=== PATIENT | male | born 1965 | race Caucasian/White ===

== ENCOUNTER 2020-02-09 14:48 | Inpatient (IN) | payer OTHER, MEDICAID ==
[~2020-02-09] VITALS: Ht 177.8 cm; Wt 97.1 kg
[2020-02-09 14:58] VITALS: BP_SYST 115
[2020-02-09] MEDS ORDERED: MORPHINE 4 MG/ML INJ. SYRINGE IVP ONE ×2 (15:00→17:15)
[2020-02-09 15:21] LABS: BASOPHILS # (AUTO) 0.1 K/uL (0.0-0.2); BASOPHILS % (AUTO) 0.8 % (0.0-2.0); EOSINOPHILS # (AUTO) 0.2 K/uL (0.0-0.4); EOSINOPHILS % (AUTO) 2.5 % (0.0-4.0); HEMATOCRIT 45.7 % (36-54); HEMOGLOBIN 15.4 g/dL (14.0-18.0); LYMPHOCYTES # (AUTO) 1.7 K/uL (1.0-5.5); LYMPHOCYTES % (AUTO) 24.9 % (20.5-51.5); MEAN CORPUSCULAR HEMOGLOBIN 34 pg (27-31); MEAN CORPUSCULAR HGB CONC 34 % (32-36); MEAN CORPUSCULAR VOLUME 100 fL (79.0-98.0); MONOCYTES # (AUTO) 0.9 K/uL (0.0-1.0); MONOCYTES % (AUTO) 12.3 % (1.7-9.3); NEUTROPHILS # (AUTO) 4.2 K/uL (1.8-7.7); NEUTROPHILS % (AUTO) 59.5 % (40.0-70.0); PLATELET COUNT (AUTO) 161 K/uL (130-430); RED BLOOD CELL COUNT(AUTO) 4.58 MIL/uL (4.2-6.2); RED CELL DISTRIBUTION WIDTH 12.7 % (9.0-15.0)
[2020-02-09] MEDS ORDERED: LORazepam 2 MG/ML VIAL IVP ONE (16:00)
[2020-02-09 16:39] LABS: ANION GAP 9 (5-15); CALCIUM 8.6 mg/dL (8.4-11.0); CHLORIDE 102 mmol/L (98-107); GLUCOSE 112 mg/dL (70-99); POTASSIUM 4.4 mmol/L (3.5-5.1); SODIUM SERUM 138 mmol/L (136-145); UREA NITROGEN, BLOOD 16 mg/dL (8-21)
[2020-02-09 16:40] LABS: BILIRUBIN,URINE NEGATIVE (NEGATIVE); BLOOD, URINE NEGATIVE (NEGATIVE); CLARITY/URINE CLEAR (CLEAR); COLOR,URINE YELLOW (YELLOW); GLUCOSE,URINE NEGATIVE (NEGATIVE); KETONES,URINE NEGATIVE (NEGATIVE); LEUKOCYTE ESTERASE ,URINE NEGATIVE (NEGATIVE); NITRITE, URINE NEGATIVE (NEGATIVE); PROTEIN URINE TRACE (NEGATIVE); UROBILINOGEN,URINE 0.2 (0.2-1.0)
[2020-02-09 16:41] LABS: GFR AFRICAN AMERICAN 129 mL/min (>90)
[2020-02-09 16:47] LABS: ALANINE AMINOTRANSFERASE 50 U/L (12-78); ALBUMIN 3.3 g/dL (3.4-4.8); ASPARTATE AMINOTRANSFERASE 31 U/L (10-37); TOTAL BILIRUBIN 0.3 mg/dL (0.0-1.0)
[2020-02-09] MEDS ORDERED: ESCI10TA PO (17:19)
[2020-02-09] MEDS ORDERED: CLON1TAB12 PO (17:19)
[2020-02-09] MEDS ORDERED: HYDR-3610 PO (17:19)
[2020-02-09] MEDS ORDERED: TEMA15CA5 PO (17:19)
[2020-02-09] MEDS ORDERED: CAT.1 PO (17:20)
[2020-02-09] MEDS ORDERED: DIGO125T20 PO (17:31)
[2020-02-09] MEDS ORDERED: ACET-2165 PO (17:31)
[2020-02-09] MEDS ORDERED: COR6.25 PO (17:31)
[2020-02-09] MEDS ORDERED: MAG-151 PO (17:31)
[2020-02-09] MEDS ORDERED: MOM PO (17:31)
[2020-02-09] MEDS ORDERED: RIVA20TA PO (17:31)
[2020-02-09 17:41] LABS: BACTERIA,URINE FEW /HPF (None Seen); RBC,URINE NONE SEEN /HPF (0-3)
[2020-02-09 17:42] LABS: MUCUS,URINE None Seen /LPF (None Seen)
[2020-02-09] MEDS ORDERED: MILK OF MAGNESIA 30 ML UDC PO PRN (18:15)
[2020-02-09 18:43] VITALS: BP_SYST 126
[2020-02-09] MEDS ORDERED: cloNIDine HCL 0.1 MG TABLET PO PRN (19:00)
[2020-02-09] MEDS: clonazePAM 0.5 MG TABLET PO PRN (19:57)
[2020-02-09] MEDS: HYDROmorphone 1 MG INJ. 1 MG/ML AMPUL IVP PRN (19:58)
[2020-02-09 20:00] VITALS: BP_SYST 120
[2020-02-09] MEDS: TEMAZEPAM 15 MG CAPSULE PO SCH (21:43)
[2020-02-09] MEDS: HYDROcodone/ACETAMIN 10-325 MG TAB PO SCH (21:43)
[2020-02-09] MEDS: CARVEDILOL 6.25 MG TABLET (COREG) PO SCH (21:44)
[2020-02-10] MEDS: HYDROmorphone 1 MG INJ. 1 MG/ML AMPUL IVP PRN ×4 (00:05→16:37)
[2020-02-10 00:12] VITALS: BP_SYST 117
[2020-02-10] MEDS ORDERED: LORazepam 1 MG TABLET PO ONE (03:15)
[2020-02-10] MEDS: FAMOTIDINE 20 MG TABLET PO SCH (08:17)
[2020-02-10] MEDS: HYDROcodone/ACETAMIN 10-325 MG TAB PO SCH ×2 (08:18→20:47)
[2020-02-10] MEDS: clonazePAM 0.5 MG TABLET PO PRN ×2 (08:21→21:01)
[2020-02-10 09:06] VITALS: BP_SYST 114
[2020-02-10] MEDS ORDERED: REGADENOSON 0.4 MG/5 ML SYRINGE IVP ONE (10:00)
[2020-02-10] MEDS: CITALOPRAM HYDROBROMIDE 20 MG TABLET PO SCH (12:12)
[2020-02-10] MEDS: CARVEDILOL 6.25 MG TABLET (COREG) PO SCH ×2 (12:13→20:46)
[2020-02-10] MEDS: RIVAROXABAN 10 MG TABLET PO SCH (12:18)
[2020-02-10 12:21] VITALS: BP_SYST 137
[2020-02-10 16:24] VITALS: BP_SYST 110
[2020-02-10 20:00] VITALS: BP_SYST 120
[2020-02-10] MEDS: TEMAZEPAM 15 MG CAPSULE PO SCH (20:46)
[2020-02-10 23:54] VITALS: BP_SYST 120
[2020-02-11] MEDS: ACETAMINOPHEN 325 MG TABLET PO PRN ×3 (01:55→12:50)
[2020-02-11] MEDS: clonazePAM 0.5 MG TABLET PO PRN (09:00)
[2020-02-11] MEDS: RIVAROXABAN 10 MG TABLET PO SCH (09:04)
[2020-02-11] MEDS: HYDROcodone/ACETAMIN 10-325 MG TAB PO SCH (09:04)
[2020-02-11] MEDS: CARVEDILOL 6.25 MG TABLET (COREG) PO SCH (09:05)
[2020-02-11] MEDS: CITALOPRAM HYDROBROMIDE 20 MG TABLET PO SCH (09:05)
[2020-02-11] MEDS: FAMOTIDINE 20 MG TABLET PO SCH (09:06)
[2020-02-11 09:47] VITALS: BP_SYST 137
[2020-02-11 13:06] VITALS: BP_SYST 116
== END 2020-02-11 14:56 | disposition home or self-care (01) | DRG 392 ==
LOC: SED 14:48 → STU 17:40
PROVIDERS: ADMIT Internal Medicine; ATTEND Internal Medicine
DX: K21.9 Gastro-esophageal reflux disease without esophagitis (principal); I42.8 Other cardiomyopathies; I50.22 Chronic systolic (congestive) heart failure; I11.0 Hypertensive heart disease with heart failure; F32.9 Major depressive disorder, single episode, unspecified; I48.91 Unspecified atrial fibrillation; I08.1 Rheumatic disorders of both mitral and tricuspid valves; I25.10 Atherosclerotic heart disease of native coronary artery without angina pectoris; F41.9 Anxiety disorder, unspecified; Z86.79 Personal history of other diseases of the circulatory system; I25.2 Old myocardial infarction; Z79.01 Long term (current) use of anticoagulants; Z95.810 Presence of automatic (implantable) cardiac defibrillator; Z88.8 Allergy status to other drugs, medicaments and biological substances; Z88.6 Allergy status to analgesic agent; Z79.899 Other long term (current) drug therapy
CPT/HCPCS: 36415; 71045; 80053; 80162-TC; 81000-TC; 83880; 84484; 85025; 87081; 93005; 93017; 96374; 96375; 96376; 99285; G0378; J1170; J2060; J2270; J2785